=== PATIENT | male | born 1985 | race Caucasian/White ===

== ENCOUNTER 2024-06-18 13:31 | Emergency (ER) | payer BC ==
[2024-06-18] MEDS: Ondansetron 4 MG/2 ML SDV IVPUSH ONE (13:54)
[2024-06-18] MEDS ORDERED: Sodium Chloride 0.9% 10 ML Syringe FLUSH PRN (14:01)
[2024-06-18] MEDS: Sodium Chloride 0.9% 1,000 ML IV ONE (14:07)
[2024-06-18 14:11] LABS: BASOPHILS ABSOLUTE AUTO 0.1 x10-3/uL (0.0-0.3); BASOPHILS PERCENT AUTO 1.2 % (0.3-3.8); EOSINOPHILS ABSOLUTE AUTO 0.1 x10-3/uL (0.0-0.6); EOSINOPHILS PERCENT AUTO 1.3 % (0.1-6.8); HEMATOCRIT 42.2 % (38.3-50.1); HEMOGLOBIN 14.7 g/dL (12.9-17.7); LYMPHOCYTES ABSOLUTE AUTO 1.9 x10-3/uL (0.5-4.5); LYMPHOCYTES PERCENT AUTO 38.5 % (15.8-45.3); MEAN CORPUSCULAR HEMOGLOBIN 29.8 pg (27.0-33.3); MEAN CORPUSCULAR HGB CONC 34.9 g/dL (28.7-35.3); MEAN CORPUSCULAR VOLUME 85.4 fL (80.8-98.7); MEAN PLATELET VOLUME 7.6 fL (6.7-11.0); MONOCYTES ABSOLUTE AUTO 0.4 x10-3/uL (0.0-1.2); MONOCYTES PERCENT AUTO 8.8 % (5.5-15.2); NEUTROPHILS ABSOLUTE AUTO 2.4 x10-3/uL (1.7-6.9); NEUTROPHILS PERCENT AUTO 50.2 % (40.3-71.8); PLATELET COUNT,PLT 390 x10(3)uL (117-477); RED BLOOD CELL COUNT 4.94 x10(6)uL (3.90-5.90); RED CELL DISTRIBUTION WIDTH 13.1 % (12.4-15.0); WHITE BLOOD CELL COUNT,WBC 4.8 x10-3/uL (3.2-10.1)
[2024-06-18 14:14] LABS: BLOOD UREA NITROGEN,BUN 17 mg/dL (7-18); BUN/CREATININE RATIO 13.1 (9-20); CALCIUM 8.7 mg/dL (8.6-10.2); CARBON DIOXIDE,CO2 27 mmol/L (21-32); CHLORIDE,CL 101 mmol/L (100-110); CREATININE 1.3 mg/dL (0.70-1.30); ESTIMATED GFR 73 mL/min (>60); GLUCOSE RANDOM 167 mg/dL (80-116); POTASSIUM,K 3.6 mmol/L (3.5-5.3); SODIUM,NA 137 mmol/L (135-145)
[2024-06-18 14:20] LABS: A/G RATIO 1.3; ALANINE AMINOTRANSFERASE,ALT 22 U/L (12-36); ALKALINE PHOSPHATASE 80 IU/L (56-112); ASPARTATE AMNIOTRANSFERASE,AST 14 IU/L (5-25); BILIRUBIN TOTAL 0.5 mg/dL (0.1-1.3)
[2024-06-18 14:22] LABS: LIPASE 87 U/L (16-77); TROPONIN I 7.3 pg/mL (4.0-60.3)
[2024-06-18 14:23] LABS: C-REACTIVE PROTEIN < 0.50 mg/dL (<0.50)
[2024-06-18 14:24] LABS: LACTIC ACID 1.9 mmol/L (0.4-2.0)
[2024-06-18] MEDS: LORazepam 2 MG/ML SDV IVPUSH ONE (15:14)
== END 2024-06-18 16:44 | disposition home or self-care (01) ==
LOC: FB.ED 13:31
DX: F41.9 Anxiety disorder, unspecified (principal); Z88.6 Allergy status to analgesic agent
CPT/HCPCS: 36415; 80053; 83605; 83690; 84484; 85025; 85379; 86140; 93005; 93010; 96361; 96374; 96375; 99284; 99285-25; J2060; J2405; J7030